=== PATIENT | female | born 1965 | race Hispanic/Latino ===

== ENCOUNTER 2023-01-18 16:12 | Inpatient (IN) | payer SELFPAY ==
[2023-01-18 17:27] LABS: APPEARANCE,URINE CLEAR; COLOR,URINE YELLOW; GLUCOSE,URINE NEGATIVE (NEGATIVE); KETONES,URINE >=80 mg/dL (NEGATIVE); LEUKOCYTE ESTERASE,URINE MODERATE (NEGATIVE); NITRITE,URINE NEGATIVE (NEGATIVE); OCCULT BLOOD,URINE NEGATIVE (NEGATIVE); PROTEIN,URINE TRACE mg/dL (NEGATIVE); UROBILINOGEN,URINE 0.2 EU/dL (<2.0)
[2023-01-18] MEDS ORDERED: Sodium Chloride 0.9% 1,000 ML IV STA (17:29)
[2023-01-18] MEDS ORDERED: Sodium Chloride 0.9% 10 ML Syringe FLUSH PRN ×2 (17:29→19:49)
[2023-01-18] MEDS ORDERED: Ondansetron 4 MG/2 ML SDV IVPUSH STA (17:29)
[2023-01-18] MEDS ORDERED: Sodium Chloride 0.9% 2.5 ML Syringe FLUSH PRN ×2 (17:29→19:49)
[2023-01-18 17:31] LABS: BILIRUBIN,URINE MODERATE (NEGATIVE)
[2023-01-18 17:38] LABS: EPITHELIAL CELLS,URINE FEW (NONE-FEW); RBC,URINE NONE SEEN (0-2/HPF)
[2023-01-18 17:39] LABS: BACTERIA,URINE FEW (NEGATIVE); HYALINE CASTS,URINE FEW (0-2/LPF); MUCUS,URINE LIGHT (NONE-MOD)
[2023-01-18 17:57] LABS: BASOPHILS PERCENT AUTO 0.2 % (0.0-1.5); EOSINOPHILS ABSOLUTE AUTO 0.1 K/uL (0.0-0.7); EOSINOPHILS PERCENT AUTO 0.5 % (0.0-7.0); HEMATOCRIT 34.3 % (36.0-46.0); HEMOGLOBIN 11.7 g/dL (12.0-16.0); LYMPHOCYTES ABSOLUTE AUTO 1.7 K/uL (0.6-2.4); LYMPHOCYTES PERCENT AUTO 16.6 % (16.0-40.0); MEAN CORPUSCULAR HEMOGLOBIN 29.8 pg (27.0-32.0); MEAN CORPUSCULAR HGB CONC 34.1 g/dL (31.0-37.0); MEAN CORPUSCULAR VOLUME 87.5 fL (80.0-98.0); MONOCYTES ABSOLUTE AUTO 0.9 K/uL (0.0-0.8); NEUTROPHILS ABSOLUTE AUTO 7.6 K/uL (1.4-5.7); NEUTROPHILS PERCENT AUTO 73.7 % (48.0-80.0); NRBC ABSOLUTE 0 K/uL; PLATELET COUNT,PLT 206 K/uL (150-400); RED BLOOD CELL COUNT 3.92 M/uL (4.30-5.90); WHITE BLOOD CELL COUNT,WBC 10.24 K/uL (4.0-11.0)
[2023-01-18 18:27] LABS: A/G RATIO 0.8 (0.9-1.6); ALBUMIN 3.7 g/dL (3.4-5.0); BILIRUBIN TOTAL 0.7 mg/dL (0.2-1.0); CALCIUM 8.7 mg/dL (8.5-10.1); CARBON DIOXIDE,CO2 22.7 mmol/L (21.0-32.0); CREATININE 0.7 mg/dL (0.6-1.0); EST CRCL DRUG DOSING (CG) 76.57 mL/min; POTASSIUM,K 3.6 mmol/L (3.5-5.1); PROTEIN TOTAL,TP 8.1 g/dL (6.4-8.2)
[2023-01-18 19:36] LABS: HEMOGLOBIN A1C 6.7 %
[2023-01-18] MEDS ORDERED: Piperacillin/Tazobactam 3.375 GM in Sodium Chloride 0.9% 100 ML IV STA (19:45)
[2023-01-18] MEDS ORDERED: Sodium Chloride 0.9% 20 ML SDV IV PRN (19:49)
[2023-01-18] MEDS ORDERED: diphenhydrAMINE 50 MG/ML SDV IVPUSH PRN (19:49)
[2023-01-18] MEDS ORDERED: 50% Dextrose in Water 50 ML Syringe IVPUSH PRN (19:55)
[2023-01-18] MEDS ORDERED: Glucagon,Human Recombinant 1 MG Vial IM PRN (19:55)
[2023-01-18] MEDS: Lactated Ringers 1,000 ML IV SCH (20:05)
[2023-01-18] MEDS ORDERED: Acetaminophen 325 MG Tab PO PRN (20:33)
[2023-01-19] MEDS: Piperacillin/Tazobactam 3.375 GM in Sodium Chloride 0.9% 100 ML IV SCH ×4 (03:31→22:35)
[2023-01-19] MEDS: Lactated Ringers 1,000 ML IV SCH ×2 (04:57→23:16)
[2023-01-19 05:59] LABS: HEMOGLOBIN 10.7 g/dL (12.0-16.0); MEAN CORPUSCULAR HEMOGLOBIN 29.2 pg (27.0-32.0); MEAN CORPUSCULAR HGB CONC 33.4 g/dL (31.0-37.0); MEAN CORPUSCULAR VOLUME 87.4 fL (80.0-98.0); MEAN PLATELET VOLUME 10.9 fL (7.40-12.00); RED BLOOD CELL COUNT 3.66 M/uL (4.30-5.90); WHITE BLOOD CELL COUNT,WBC 9.65 K/uL (4.0-11.0)
[2023-01-19 06:35] LABS: A/G RATIO 0.8 (0.9-1.6); BILIRUBIN TOTAL 1.1 mg/dL (0.2-1.0); CALCIUM 8.3 mg/dL (8.5-10.1); CARBON DIOXIDE,CO2 23.1 mmol/L (21.0-32.0); CREATININE 0.6 mg/dL (0.6-1.0); EST CRCL DRUG DOSING (CG) 89.33 mL/min; POTASSIUM,K 3.7 mmol/L (3.5-5.1); PROTEIN TOTAL,TP 6.9 g/dL (6.4-8.2)
[2023-01-19] MEDS: Insulin Aspart 100 Units/ML 3 ML Pen SUBCUT SCH ×3 (07:12→17:43)
[2023-01-19] MEDS: Pantoprazole 40 MG in Sodium Chloride 0.9% 10 ML IVPUSH SCH (09:18)
[2023-01-19] MEDS ORDERED: Propofol 200 MG/20 ML SDV ONE (12:02)
[2023-01-19] MEDS ORDERED: Ketamine 500 mg/10 ML MDV ONE (12:02)
[2023-01-19] MEDS ORDERED: fentaNYL 250 MCG/5 ML SDV ONE ×2 (12:02→13:27)
[2023-01-19] MEDS ORDERED: Albuterol 0.083% 2.5 MG/3 ML Neb Soln NEB PRN (12:10)
[2023-01-19] MEDS ORDERED: Naloxone 0.4 MG/ML SDV IVPUSH PRN (12:10)
[2023-01-19] MEDS ORDERED: droPERidol 5 MG/2 ML SDV IVPUSH PRN (12:10)
[2023-01-19] MEDS ORDERED: HYDROmorphone 1 MG/ML Syringe IVPUSH PRN (12:10)
[2023-01-19] MEDS ORDERED: Ondansetron 4 MG/2 ML SDV IVPUSH PRN (12:10)
[2023-01-19] MEDS ORDERED: fentaNYL 50 MCG/ML SDV IVPUSH PRN (12:10)
[2023-01-19] MEDS ORDERED: Metoclopramide 10 MG/2 ML SDV IVPUSH PRN (12:10)
[2023-01-19] MEDS ORDERED: Morphine 2 MG/ML SYRINGE IVPUSH PRN (12:10)
[2023-01-19] MEDS ORDERED: Bupivacaine 0.5% 30 ML SDV ONE ×2 (12:20→14:47)
[2023-01-19] MEDS ORDERED: Ropivacaine 0.5% 5 MG/ML 30 ML SDV ONE (12:37)
[2023-01-19] MEDS ORDERED: Morphine 10 MG/ML SDV ONE (12:39)
[2023-01-19] MEDS ORDERED: Rocuronium Bromide 50 MG/5 ML Syringe ONE (13:36)
[2023-01-19] MEDS ORDERED: Phenylephrine HCl 0.5 MG/5 ML AMP ONE (13:53)
[2023-01-19] MEDS ORDERED: Ondansetron 4 MG/2 ML SDV ONE (14:40)
[2023-01-19] MEDS ORDERED: Dexamethasone 4 MG/ML 5 ML MDV ONE (14:40)
[2023-01-19] MEDS ORDERED: Sugammadex Sodium 200 MG/2 ML VIAL ONE (14:41)
[2023-01-19] MEDS ORDERED: Bupivacaine 0.25% 30 ML SDV ONE (14:47)
[2023-01-19 14:52] LABS: BASOPHILS PERCENT AUTO 0.1 % (0.0-1.5); EOSINOPHILS ABSOLUTE AUTO 0.2 K/uL (0.0-0.7); EOSINOPHILS PERCENT AUTO 1.6 % (0.0-7.0); HEMATOCRIT 30.9 % (36.0-46.0); HEMOGLOBIN 10.4 g/dL (12.0-16.0); LYMPHOCYTES ABSOLUTE AUTO 2.1 K/uL (0.6-2.4); LYMPHOCYTES PERCENT AUTO 19.7 % (16.0-40.0); MEAN CORPUSCULAR HEMOGLOBIN 29.5 pg (27.0-32.0); MEAN CORPUSCULAR HGB CONC 33.7 g/dL (31.0-37.0); MEAN CORPUSCULAR VOLUME 87.8 fL (80.0-98.0); MONOCYTES ABSOLUTE AUTO 1.3 K/uL (0.0-0.8); NEUTROPHILS ABSOLUTE AUTO 7.2 K/uL (1.4-5.7); NEUTROPHILS PERCENT AUTO 66.6 % (48.0-80.0); NRBC ABSOLUTE 0 K/uL; PLATELET COUNT,PLT 176 K/uL (150-400); RED BLOOD CELL COUNT 3.52 M/uL (4.30-5.90); WHITE BLOOD CELL COUNT,WBC 10.75 K/uL (4.0-11.0)
[2023-01-19] MEDS ORDERED: Sodium Chloride 0.9% 50 ML ONE (15:01)
[2023-01-19] MEDS ORDERED: Bupivacaine 0.5% 10 ML SDV ONE ×2 (15:27→15:28)
[2023-01-19] MEDS: Ondansetron 4 MG/2 ML SDV IVPUSH PRN (16:17)
[2023-01-19] MEDS: Cyclobenzaprine 10 MG Tab PO SCH (17:23)
[2023-01-19] MEDS: Ketorolac 30 MG/ML SDV IVPUSH SCH ×2 (17:23→22:30)
[2023-01-19] MEDS ORDERED: Acetaminophen 1,000 MG in Premix Bag 1 BAG IV PRN (21:00)
[2023-01-20] MEDS: Cyclobenzaprine 10 MG Tab PO SCH ×4 (01:22→23:56)
[2023-01-20] MEDS: oxyCODONE 5 MG Tab PO PRN ×2 (01:24→08:37)
[2023-01-20] MEDS: Ketorolac 30 MG/ML SDV IVPUSH SCH ×4 (04:51→21:56)
[2023-01-20] MEDS: Piperacillin/Tazobactam 3.375 GM in Sodium Chloride 0.9% 100 ML IV SCH (06:13)
[2023-01-20 06:37] LABS: HEMATOCRIT 27.4 % (36.0-46.0); HEMOGLOBIN 9.1 g/dL (12.0-16.0); MEAN CORPUSCULAR HEMOGLOBIN 28.7 pg (27.0-32.0); MEAN CORPUSCULAR HGB CONC 33.2 g/dL (31.0-37.0); MEAN CORPUSCULAR VOLUME 86.4 fL (80.0-98.0); MEAN PLATELET VOLUME 11.4 fL (7.40-12.00); RED BLOOD CELL COUNT 3.17 M/uL (4.30-5.90); WHITE BLOOD CELL COUNT,WBC 9.41 K/uL (4.0-11.0)
[2023-01-20 07:02] LABS: A/G RATIO 0.7 (0.9-1.6); ALBUMIN 2.5 g/dL (3.4-5.0); BILIRUBIN TOTAL 0.5 mg/dL (0.2-1.0); CALCIUM 8.4 mg/dL (8.5-10.1); CARBON DIOXIDE,CO2 25.5 mmol/L (21.0-32.0); CREATININE 0.6 mg/dL (0.6-1.0); EST CRCL DRUG DOSING (CG) 89.33 mL/min; POTASSIUM,K 4.2 mmol/L (3.5-5.1); PROTEIN TOTAL,TP 5.9 g/dL (6.4-8.2)
[2023-01-20] MEDS: Lactated Ringers 1,000 ML IV SCH (07:20)
[2023-01-20] MEDS: Insulin Aspart 100 Units/ML 3 ML Pen SUBCUT SCH ×3 (07:54→17:49)
[2023-01-20] MEDS: Pantoprazole 40 MG in Sodium Chloride 0.9% 10 ML IVPUSH SCH (08:02)
[2023-01-20] MEDS: Ciprofloxacin 500 MG Tab PO SCH ×2 (11:13→20:09)
[2023-01-20] MEDS: Multivitamin Tab PO SCH (11:13)
[2023-01-20] MEDS: Heparin Sodium 5,000 Units/ML Vial SUBCUT SCH ×2 (11:13→20:09)
[2023-01-20] MEDS: Acetaminophen 325 MG Tab PO SCH ×3 (11:14→20:08)
[2023-01-20] MEDS: metroNIDAZOLE 250 MG Tab PO SCH ×3 (11:14→23:56)
[2023-01-20] MEDS: Polyethylene Glycol 3350 Powder 17 GM Packet PO SCH (11:21)
[2023-01-20] MEDS: HYDROmorphone 2 MG/ML Syringe IVPUSH PRN (14:06)
[2023-01-20] MEDS: metFORMIN 500 MG Tab.ER PO SCH (16:56)
[2023-01-21] MEDS: Acetaminophen 325 MG Tab PO SCH ×3 (03:08→14:11)
[2023-01-21] MEDS: Ketorolac 30 MG/ML SDV IVPUSH SCH ×2 (04:45→10:52)
[2023-01-21 06:26] LABS: HEMATOCRIT 24.8 % (36.0-46.0); HEMOGLOBIN 8.1 g/dL (12.0-16.0); MEAN CORPUSCULAR HEMOGLOBIN 28.6 pg (27.0-32.0); MEAN CORPUSCULAR HGB CONC 32.7 g/dL (31.0-37.0); MEAN CORPUSCULAR VOLUME 87.6 fL (80.0-98.0); MEAN PLATELET VOLUME 11.5 fL (7.40-12.00); RED BLOOD CELL COUNT 2.83 M/uL (4.30-5.90); WHITE BLOOD CELL COUNT,WBC 6.1 K/uL (4.0-11.0)
[2023-01-21 06:49] LABS: A/G RATIO 0.7 (0.9-1.6); ALBUMIN 2.3 g/dL (3.4-5.0); BILIRUBIN TOTAL 0.2 mg/dL (0.2-1.0); CALCIUM 7.8 mg/dL (8.5-10.1); CARBON DIOXIDE,CO2 27.8 mmol/L (21.0-32.0); CREATININE 0.7 mg/dL (0.6-1.0); EST CRCL DRUG DOSING (CG) 76.57 mL/min; POTASSIUM,K 3.2 mmol/L (3.5-5.1); PROTEIN TOTAL,TP 5.7 g/dL (6.4-8.2)
[2023-01-21] MEDS: Insulin Aspart 100 Units/ML 3 ML Pen SUBCUT SCH ×2 (07:29→11:14)
[2023-01-21] MEDS: metroNIDAZOLE 250 MG Tab PO SCH (08:35)
[2023-01-21] MEDS: Multivitamin Tab PO SCH (08:35)
[2023-01-21] MEDS: Cyclobenzaprine 10 MG Tab PO SCH (08:35)
[2023-01-21] MEDS: metFORMIN 500 MG Tab.ER PO SCH (08:35)
[2023-01-21] MEDS: Ciprofloxacin 500 MG Tab PO SCH (08:35)
[2023-01-21] MEDS: Pantoprazole 40 MG in Sodium Chloride 0.9% 10 ML IVPUSH SCH (08:46)
[2023-01-21] MEDS: Heparin Sodium 5,000 Units/ML Vial SUBCUT SCH (08:54)
[2023-01-21] MEDS: Polyethylene Glycol 3350 Powder 17 GM Packet PO SCH (08:58)
[2023-01-21] MEDS: Ondansetron 4 MG/2 ML SDV IVPUSH PRN (12:15)
[2023-01-21] MEDS: oxyCODONE 5 MG Tab PO PRN (12:15)
[2023-01-21] MEDS: HYDROmorphone 2 MG/ML Syringe IVPUSH PRN (13:30)
== END 2023-01-21 15:50 | disposition home or self-care (01) | DRG 415 ==
LOC: MW.ED 16:12 → MW.SDS 20:21 → MW.MS 20:25 → MW.SDS 01-19 20:40 → MW.MS 01-19 20:46
PROVIDERS: ADMIT Surgery; ATTEND Surgery
PROC: 0FT40ZZ Resection of Gallbladder, Open Approach (ICD-10-PCS; principal; 2023-01-19)
PROC: 0WQF4ZZ Repair Abdominal Wall, Percutaneous Endoscopic Approach (ICD-10-PCS; 2023-01-19)
PROC: 0FJ44ZZ Inspection of Gallbladder, Percutaneous Endoscopic Approach (ICD-10-PCS; 2023-01-19)
DX: K80.00 Calculus of gallbladder with acute cholecystitis without obstruction (principal); N30.00 Acute cystitis without hematuria; K83.8 Other specified diseases of biliary tract; F17.210 Nicotine dependence, cigarettes, uncomplicated; E11.65 Type 2 diabetes mellitus with hyperglycemia; K42.9 Umbilical hernia without obstruction or gangrene; Z53.31 Laparoscopic surgical procedure converted to open procedure; Z79.84 Long term (current) use of oral hypoglycemic drugs; Z79.899 Other long term (current) drug therapy; Z98.890 Other specified postprocedural states
CPT/HCPCS: 36415; 74181; 74181-26; 76705; 76705-26; 80053; 81001; 82947; 83036; 83690; 85025; 85027; 85730; 86850; 86900; 86901; 87070; 87075; 87077; 87186; 87205; 93005; 93010; 96361; 96365; 96375; 99284; 99285-25; A9270-GY; C9113; J0131; J1100; J1170; J1644; J1815-GY; J1885; J2270; J2371; J2405; J2543; J2704; J2795; J3010; J3490; J7030; J7120

== ENCOUNTER 2025-04-09 10:17 | Day surgery (SDC) | payer SELFPAY ==
[~2025-04-09 10:17] MED LIST: Albuterol 0.083% 2.5 MG/3 ML Neb Soln NEB PRN; Naloxone 0.4 MG/ML SDV IVPUSH PRN; Ondansetron 4 MG/2 ML SDV IVPUSH PRN; ceFAZolin 2 GM in Water For Injection, Sterile 20 ML IVPUSH ONE
[2025-04-09] MEDS: Lactated Ringers 1,000 ML IV SCH (10:35)
[2025-04-09] MEDS: fentaNYL 50 MCG/ML SDV IVPUSH PRN (10:46)
[2025-04-09] MEDS ORDERED: fentaNYL 100 MCG/2 ML SDV ONE (11:12)
[2025-04-09] MEDS ORDERED: Propofol 200 MG/20 ML SDV ONE ×2 (11:12→13:41)
[2025-04-09] MEDS ORDERED: propofoL 500 MG/50 ML 50 ML ONE ×2 (11:12→13:25)
[2025-04-09] MEDS ORDERED: Ropivacaine 0.5% 5 MG/ML 30 ML SDV ONE (11:14)
[2025-04-09] MEDS ORDERED: Bupivacaine 0.5%/EPINEPHrine 1:200,000 30 ML SDV ONE (11:34)
[2025-04-09] MEDS ORDERED: Ketamine HCL/NACL, ISO-OSM 50 MG/5 ML Syringe ONE (12:46)
[2025-04-09] MEDS ORDERED: Dexamethasone 4 MG/ML 5 ML MDV ONE (13:25)
[2025-04-09] MEDS ORDERED: Ondansetron 4 MG/2 ML SDV ONE (13:25)
[2025-04-09] MEDS ORDERED: Ketorolac 30 MG/ML SDV ONE (13:25)
== END 2025-04-09 16:05 | disposition home or self-care (01) ==
LOC: MW.SDS 10:17
PROVIDERS: ATTEND Orthopaedic Surgery
DX: S82.842A Displaced bimalleolar fracture of left lower leg, initial encounter for closed fracture (principal); E66.9 Obesity, unspecified; E11.9 Type 2 diabetes mellitus without complications; Z79.84 Long term (current) use of oral hypoglycemic drugs; W00.0XXA Fall on same level due to ice and snow, initial encounter
CPT/HCPCS: 27814; J0690; J1100; J1171; J1308; J1885; J2405; J2704; J2765; J2795; J3010; J7120; J7999; 01480; 64447; C1713; C1769; J0665; J2371; J3490